=== PATIENT | male | born 1965 | race Caucasian/White ===

== ENCOUNTER 2017-10-23 07:11 | Emergency (ER) | payer BC, OTHER ==
[2017-10-23] MEDS ORDERED: Ondansetron INJ* 2 MG/ML VIAL IV ONE (07:33)
[2017-10-23] MEDS ORDERED: Ketorolac INJ* 30 MG/ML 1 ML VIAL IV ONE (07:33)
[2017-10-23 08:00] LABS: ABS Basophils 0.1 10^3/ul (0-0.2); ABS Eosinophils 0.2 10^3/ul (0-0.6); ABS Lymphocytes 1.5 10^3/ul (1.0-4.8); ABS Monocytes 0.5 10^3/ul (0-0.8); ABS Neutrophils 4.7 10^3/ul (1.5-7.7); ABS Nucleated RBC 0 10^3/ul; Eosinophil % 3.5 % (0-6); Hematocrit 48 % (42-52); Hemoglobin 17.4 g/dl (14.0-18.0); Lymphocyte % 21.6 % (25-47); Mean Corpuscular HGB Conc 37 g/dl (31-36); Mean Corpuscular Hemoglobin 29 pg (27-31); Mean Corpuscular Volume 79 fL (80-94); Mean Platelet Volume 7.1 um3 (7.4-10.4); Nucleated Red Blood Cells % 0.6; Platelet Count 183 10^3/ul (150-450); Red Blood Count 6.03 10^6/ul (4.0-5.4); Red Cell Distribution Width 14 % (10.5-15); White Blood Count 6.9 10^3/ul (3.5-10.8)
[2017-10-23 08:10] LABS: EGFR Non-African American 61.5 (>60)
--- NOTE | 2017-10-23 08:16 | RAD ---
CLINICAL HISTORY: Right flank pain COMPARISON: None TECHNIQUE: Multiple contiguous axial CT scans were obtained of the abdomen and pelvis, without intravenous contrast enhancement. Coronal and sagittal multiplanar reformations are submitted for review. Oral contrast was not administered. FINDINGS: The study is limited by the lack of intravenous contrast. This limits evaluation of the solid organs and vasculature. LUNG BASES: The lung bases are clear. LIVER: The liver is diffusely low in attenuation compared to the spleen. There are no focal hepatic parenchymal masses. BILE DUCTS: There is no intrahepatic or extrahepatic biliary dilatation. GALLBLADDER: The gallbladder is not visualized. Surgical clips are noted in the gallbladder fossa. PANCREAS: The pancreas is normal, without mass or ductal dilatation. SPLEEN: The spleen measures up to 16 cm in long axis. UPPER GI TRACT: Evaluation of the gastrointestinal tract is limited by incomplete gastric distention. The upper GI tract is unremarkable. SMALL BOWEL AND MESENTERY: The small bowel is normal in contour, course, and caliber. There is no obstruction or dilatation. COLON: The colon is normal in contour, course, caliber. There is no pericolonic inflammatory change. There is a tubular, vermiform, hollow viscus that is blind ending, and originates from the cecum, consistent with a normal appendix. There is no periappendiceal inflammatory change. This is best seen on coronal images 49 through 51. ADRENALS: Normal bilaterally. KIDNEYS: There are punctate right renal calyceal stones. There is a 0.3 cm calculus of the right mid ureter without significant hydronephrosis. BLADDER: The bladder is smooth in contour. PELVIC ORGANS: The prostate is diffusely enlarged. The seminal vesicles are symmetric. AORTA: The aorta is normal. IVC: Unremarkable LYMPH NODES: There is no lymphadenopathy by size criteria. ABDOMINAL WALL: There is no evidence for abdominal wall hernia. BONES AND SOFT TISSUES: There are bilateral pars defects at L5 with trace anterolisthesis of L5 on S1. Degenerative changes are noted. OTHER: None IMPRESSION: 1. RIGHT NEPHROLITHIASIS INCLUDING A 0.3 CM RIGHT MID URETERAL STONE WITHOUT SIGNIFICANT HYDRONEPHROSIS. 2. SPLENOMEGALY. 3. 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 4. FATTY INFILTRATION OF THE LIVER. 5. ENLARGED PROSTATE
[2017-10-23] MEDS ORDERED: NS 0.9% 1000 ML* 1,000 ML IV ONE (09:12)
[2017-10-23] MEDS ORDERED: Potassium Chlor TAB* 20 MEQ TAB.ER PO ONE (10:20)
[2017-10-23 10:31] LABS: Urine Appearance Clear; Urine Blood 2+ (Negative); Urine Color Straw; Urine Ketones Negative (Negative); Urine Protein Negative (Negative); Urine Urobilinogen Negative (Negative)
[2017-10-23] MEDS ORDERED: Potassium Chloride LIQUID* 20 MEQ PACKET PO ONE (10:45)
[2017-10-23] MEDS ORDERED: HYDROcodone/ACETAMIN 5-325 MG* 1 TAB PO ONE (10:58)
[2017-10-23 11:09] VITALS: BP 173/97
--- NOTE | 2017-10-24 07:59 | ED ---
Satish Clements Angela, scribed for Andre Sandoval MD on 10/23/17 at 0742 . Abdominal Pain/Male - HPI Summary HPI Summary: This pt is a 52 y/o male presenting to [facility] c/o right flank pain since this morning, 2 hours PRIMARY COUNSELOR. Pt reports that he has nausea and had 1 episode of vomiting. Denies fever, diarrhea, constipation. Pt states he has never had this pain before in the past. Denies hx of kidney stone, although he has had gallstones. Per nurse triage, pt took gas ex this morning with no relief. - History of Current Complaint Chief Complaint: EDFlankPain Stated Complaint: RT FLANK PAIN Hx Obtained From: Patient Onset/Duration: Lasting Hours, Still Present Timing: Lasting Hours Severity Currently: Severe Pain Intensity: 8 Pain Scale Used: 0-10 Numeric Location: Flank - right Radiates: No Aggravating Factor(s): Nothing Alleviating Factor(s): Nothing Associated Signs And Symptoms: Positive: Nausea, Vomiting. Negative: Fever, Constipation, Diarrhea - Allergies/Home Medications Allergies/Adverse Reactions: Allergies Allergy/AdvReac Type Severity Reaction Status Date / Time No Known Allergies Allergy Verified 10/24/17 07:16 Home Medications: Home Medications Omeprazole CAP* [Prilosec CAP* 20 MG] 20 mg PO DAILY 10/23/17 [History Confirmed 10/23/17] PMH/Surg Hx/FS Hx/Imm Hx Endocrine/Hematology History: Denies: Hx Diabetes Cardiovascular History: Denies: Hx Hypertension, Other Cardiovascular Problems/Disorders - Cardiac cath 1999 no stents placed GI History: Reports: Hx Gastrointestinal Bleed - duodenal ulcer Sensory History: Reports: Hx Contacts or Glasses Opthamlomology History: Reports: Hx Contacts or Glasses - Surgical History Surgery Procedure, Year, and Place: gallbladder surg 2010 Infectious Disease History: No Infectious Disease History: Denies: Hx Clostridium Difficile, Hx Hepatitis, Hx Human Immunodeficiency Virus (HIV), Hx Shingles, Hx Tuberculosis, Traveled Outside the [place] in Last 30 Days - Family History Known Family History: Positive: Cardiac Disease - Father: CAD, Hypertension - father and mother Family History: Mother: HLD. No FHx of colorectal CA. - Social History Alcohol Use: None Substance Use Type: Reports: None Smoking Status (MU): Never Smoked Tobacco Review of Systems Negative: Fever ENT: Negative Cardiovascular: Negative Positive: Abdominal Pain, Vomiting, Nausea. Negative: Diarrhea, Other - constipation Skin: Negative Neurological: Negative All Other Systems Reviewed And Are Negative: Yes Physical Exam - Summary Physical Exam Summary: VITAL SIGNS: Reviewed. GENERAL: Patient is a well-developed and nourished male who is lying comfortable in the stretcher. Patient is not in any acute respiratory distress. HEAD AND FACE: Normocephalic and atraumatic. EYES: PERRLA, EOMI x 2, No injected conjunctiva. EARS: Hearing grossly intact. Ear canals and tympanic membranes are WNL. MOUTH: Oropharynx within normal limits. NECK: Supple, trachea is midline, no adenopathy, no JVD. CHEST: Symmetric, no tenderness at palpation LUNGS: Clear to auscultation bilaterally. No wheezing or crackles. CVS: RRR, S1 and S2 present, no murmurs or gallops appreciated. ABDOMEN: Soft. Right flank tenderness. Right costovertebral angle tenderness. No signs of distention. Positive bowel sounds. No rebound no guarding, and no masses palpated. No abdominal bruit or pulsations. EXTREMITIES: FROM in all major joints, no edema, no cyanosis or clubbing. NEURO: Alert and oriented x 3. No acute neurological deficits. Speech is normal. SKIN: Dry and warm Triage Information Reviewed: Yes Vital Signs On Initial Exam: Initial Vitals Temp Pulse Resp BP Pulse Ox 96.1 F 72 16 166/95 100 10/23/17 07:18 10/23/17 07:18 10/23/17 07:18 10/23/17 07:18 10/23/17 07:18 Vital Signs Reviewed: Yes Diagnostics - Vital Signs Vital Signs Temp Pulse Resp BP Pulse Ox 10/23/17 07:18 96.1 F 72 16 166/95 100 - Laboratory Lab Results: Lab Results 10/23/17 10/23/17 10/23/17 Range/Units 07:45 07:45 07:45 WBC 6.9 (3.5-10.8) 10^3/ul RBC 6.03 H (4.0-5.4) 10^6/ul Hgb 17.4 (14.0-18.0) g/dl Hct 48 (42-52) % MCV 79 L (80-94) fL MCH 29 (27-31) pg MCHC 37 H (31-36) g/dl RDW 14 (10.5-15) % Plt Count 183 (150-450) 10^3/ul MPV 7.1 L (7.4-10.4) um3 Neut % (Auto) 67.4 (38-83) % Lymph % (Auto) 21.6 L (25-47) % [place] % (Auto) 6.7 (0-7) % Eos % (Auto) 3.5 (0-6) % Baso % (Auto) 0.8 (0-2) % Absolute Neuts (auto) 4.7 (1.5-7.7) 10^3/ul Absolute Lymphs (auto) 1.5 (1.0-4.8) 10^3/ul Absolute Monos (auto) 0.5 (0-0.8) 10^3/ul Absolute Eos (auto) 0.2 (0-0.6) 10^3/ul Absolute Basos (auto) 0.1 (0-0.2) 10^3/ul Absolute Nucleated RBC 0 10^3/ul Nucleated RBC % 0.6 Sodium 142 (139-145) mmol/L Potassium 3.4 L (3.5-5.0) mmol/L Chloride 107 (101-111) mmol/L Carbon Dioxide 25 (22-32) mmol/L Anion Gap 10 (2-11) mmol/L BUN 14 (6-24) mg/dL Creatinine 1.24 H (0.67-1.17) mg/dL Est GFR ( Amer) 79.0 (>60) Est GFR (Non-Af Amer) 61.5 (>60) BUN/Creatinine Ratio 11.3 (8-20) Glucose 141 H (70-100) mg/dL Lactic Acid 2.4 H* (0.5-2.0) mmol/L Calcium 9.1 (8.6-10.3) mg/dL Total Bilirubin 1.60 H (0.2-1.0) mg/dL AST 20 (13-39) U/L ALT 33 (7-52) U/L Alkaline Phosphatase 56 (34-104) U/L Total Creatine Kinase 86 (10-223) U/L C-Reactive Protein 4.71 (< 5.00) mg/L Total Protein 6.2 L (6.4-8.9) g/dL Albumin 4.3 (3.2-5.2) g/dL Globulin 1.9 L (2-4) g/dL Albumin/Globulin Ratio 2.3 (1-3) Amylase 44 (29-103) U/L Lipase 49 (11.0-82.0) U/L Urine Color Urine Appearance Urine pH (5-9) Ur Specific [place] (1.010-1.030) Urine Protein (Negative) Urine Ketones (Negative) Urine Blood (Negative) Urine Nitrate (Negative) Urine Bilirubin (Negative) Urine Urobilinogen (Negative) Ur Leukocyte Esterase (Negative) Urine WBC (Auto) (Absent) Urine RBC (Auto) (Absent) Urine Bacteria (Absent) Urine Glucose (Negative) 10/23/17 Range/Units 10:08 WBC (3.5-10.8) 10^3/ul RBC (4.0-5.4) 10^6/ul Hgb (14.0-18.0) g/dl Hct (42-52) % MCV (80-94) fL MCH (27-31) pg MCHC (31-36) g/dl RDW (10.5-15) % Plt Count (150-450) 10^3/ul MPV (7.4-10.4) um3 Neut % (Auto) (38-83) % Lymph % (Auto) (25-47) % [place] % (Auto) (0-7) % Eos % (Auto) (0-6) % Baso % (Auto) (0-2) % Absolute Neuts (auto) (1.5-7.7) 10^3/ul Absolute Lymphs (auto) (1.0-4.8) 10^3/ul Absolute Monos (auto) (0-0.8) 10^3/ul Absolute Eos (auto) (0-0.6) 10^3/ul Absolute Basos (auto) (0-0.2) 10^3/ul Absolute Nucleated RBC 10^3/ul Nucleated RBC % Sodium (139-145) mmol/L Potassium (3.5-5.0) mmol/L Chloride (101-111) mmol/L Carbon Dioxide (22-32) mmol/L Anion Gap (2-11) mmol/L BUN (6-24) mg/dL Creatinine (0.67-1.17) mg/dL Est GFR ( Amer) (>60) Est GFR (Non-Af Amer) (>60) BUN/Creatinine Ratio (8-20) Glucose (70-100) mg/dL Lactic Acid (0.5-2.0) mmol/L Calcium (8.6-10.3) mg/dL Total Bilirubin (0.2-1.0) mg/dL AST (13-39) U/L ALT (7-52) U/L Alkaline Phosphatase (34-104) U/L Total Creatine Kinase (10-223) U/L C-Reactive Protein (< 5.00) mg/L Total Protein (6.4-8.9) g/dL Albumin (3.2-5.2) g/dL Globulin (2-4) g/dL Albumin/Globulin Ratio (1-3) Amylase (29-103) U/L Lipase (11.0-82.0) U/L Urine Color Straw Urine Appearance Clear Urine pH 7.0 (5-9) Ur Specific [place] 1.010 (1.010-1.030) Urine Protein Negative (Negative) Urine Ketones Negative (Negative) Urine Blood 2+ A (Negative) Urine Nitrate Negative (Negative) Urine Bilirubin Negative (Negative) Urine Urobilinogen Negative (Negative) Ur Leukocyte Esterase Negative (Negative) Urine WBC (Auto) Absent (Absent) Urine RBC (Auto) 3+(>10/hpf) A (Absent) Urine Bacteria Absent (Absent) Urine Glucose Negative (Negative) Result Diagrams: 10/23/17 07:45 10/23/17 07:45 Lab Statement: Any lab studies that have been ordered have been reviewed, and results considered in the medical decision making process. - CT Abdomen/Pelvis CT CT Interpretation: Positive (See Comments) - IMPRESSION: 1. Right nephrolithiasis including a 0.3 CM right mid ureteral stone without significant hydronephrosis. 2. Splenomegaly. 3. Spondylolysis with mild spondylolisthesis at L5-S1. 4. Fatty infiltration of the liver. 5. Enlarged prostate. Dr. Sandoval has reviewed this radiology report. CT Interpretation Completed By: Radiologist - EKG 07:40 Cardiac Rate: NL EKG Rhythm: Sinus Rhythm - at 80 bpm EKG Interpretation: No ST elevations. Normal axis. Re-Evaluation - Re-Evaluation First Eval Re-Evaluation Time: 10:35 Comment: I reviewed the lab and CT results with the pt. Abdominal Pain Fem Course/Dx - Course Assessment/Plan: This pt is a 52 y/o male presenting to [facility] c/o right flank pain since this morning, 2 hours PRIMARY COUNSELOR. Pt reports that he has nausea and had 1 episode of vomiting. Denies fever, diarrhea, constipation. Pt states he has never had this pain before in the past. Denies hx of kidney stone, although he has had gallstones. Test results without any significant abnormalities except for potassium of 3.4, for which the pt was given potassium chloride, glucose of 141, lactic acid of 2.4, total bilirubin of 1.60. Urinalysis is negative for UTI , it shows 2+ blood. Abdomen/Pelvis CT: 1. Right nephrolithiasis including a 0.3 CM right mid ureteral stone without significant hydronephrosis. 2. Splenomegaly. 3. Spondylolysis with mild spondylolisthesis at L5-S1. 4. Fatty infiltration of the liver. 5. Enlarged prostate. In the ED course the pt was given IV fluids, Zofran, Toradol and [place] for the pain. After these medications the pt is feeling better. Therefore he will be discharged to home with follow up from his PCP. I discussed all the findings and test results with the patient. All questions were answered to patient satisfaction. There were no further complaints or concerns. Pt was given a prescription for [place] and Flomax. He is instructed to return to the ED for any worsening or new symptoms. Pt is hemodynamically stable, alert and oriented x3. - Diagnoses Differential Diagnosis/HQI/PQRI: Renal Colic, Ureteral Stone, Urinary Tract Infection Provider Diagnoses: Kidney stone Discharge - Sign-Out/Discharge Documenting (check all that apply): Discharge - discharge to home - Discharge Plan Condition: Stable Disposition: HOME Prescriptions: Hydrocodone/Acetaminophen [[place] 5-325 Tablet] 1 each PO Q6H PRN #12 tablet MDD 4 PRN Reason: Pain Tamsulosin CAP* [Flomax CAP*] 0.4 mg PO BEDTIME #10 cap Patient Education Materials: Kidney Stones (ED) Referrals: Non Staff,Doctor [Primary Care Provider] - [facility] PHYSICIAN REFERRAL [Outside] Additional Instructions: Please establish a primary care provider and follow up with your primary. RETURN TO THE ED FOR ANY NEW OR WORSENING SYMPTOMS. - Billing Disposition and Condition Condition: STABLE Disposition: HOME The documentation as recorded by the Satish mason Angela accurately reflects the service I personally performed and the decisions made by me, Andre Sandoval MD.
== END 2017-10-23 11:07 | disposition home or self-care (01) ==
LOC: ED 07:11
DX: N20.0 Calculus of kidney (principal)
CPT/HCPCS: 36415; 74176; 80053; 81003; 81015; 82150; 82550; 83605; 83690; 85025; 86140; 93005; 96360; 96374; 96375; 99283; A9270-GY; J1885; J2405

== ENCOUNTER 2017-10-24 07:14 | Day surgery (SDC) | payer BC ==
[2017-10-24] MEDS ORDERED: Ketorolac INJ* 30 MG/ML 1 ML VIAL IV ONE (07:32)
[2017-10-24] MEDS ORDERED: Ondansetron INJ* 2 MG/ML VIAL IV SCH (08:00)
[2017-10-24 08:11] LABS: Hematocrit 47 % (42-52); Hemoglobin 17.1 g/dl (14.0-18.0); Mean Corpuscular HGB Conc 36 g/dl (31-36); Mean Corpuscular Hemoglobin 29 pg (27-31); Mean Corpuscular Volume 80 fL (80-94); Platelet Count 166 10^3/ul (150-450); Red Cell Distribution Width 14 % (10.5-15)
[2017-10-24 08:25] LABS: EGFR Non-African American 40.8 (>60)
[2017-10-24 08:27] LABS: ABS Basophils 0 10^3/ul (0-0.2); ABS Eosinophils 0.1 10^3/ul (0-0.6); ABS Lymphocytes 0.9 10^3/ul (1.0-4.8); ABS Monocytes 0.6 10^3/ul (0-0.8); ABS Neutrophils 10.4 10^3/ul (1.5-7.7)
[2017-10-24] MEDS: NS 0.9% 1000 ML* 2,000 ML IV ONE (08:28)
[2017-10-24 08:30] LABS: Monocytes % 3 % (0-7)
--- NOTE | 2017-10-24 09:33 | RAD ---
INDICATION: Flank abdominal pain. COMPARISON: Correlation is made with a prior CT of the abdomen and pelvis from October 23, 2017. TECHNIQUE: Supine and upright views of the abdomen were obtained. FINDINGS: The small bowel and colon appear nondistended. No free intraperitoneal air is seen. There are several surgical clips in the right upper quadrant consistent with a prior cholecystectomy. There is a surgical clip which projects over the pelvis on the right side. The small ureteral calculus visualized on the prior CT study from one day earlier is not seen on the abdominal series. IMPRESSION: 1. NO EVIDENCE FOR DESTRUCTION. 2. THE RIGHT URETERAL CALCULUS SEEN ON THE PRIOR CT STUDY IS NOT VISUALIZED ON THIS EXAM.
[2017-10-24 10:08] LABS: Urine Appearance Clear; Urine Blood 2+ (Negative); Urine Color Yellow; Urine Ketones Negative (Negative); Urine Protein Negative (Negative); Urine Specific Gravity 1.012 (1.010-1.030); Urine Urobilinogen Negative (Negative)
[2017-10-24] MEDS ORDERED: DiMENhydriNATE IV* 50 MG/ML VIAL IV PUSH PRN (10:27)
[2017-10-24] MEDS ORDERED: Naloxone* 0.4 MG/ML 1 ML VIAL IV PRN (10:27)
[2017-10-24] MEDS ORDERED: oxyCODONE/Acetamin 5/325 MG* TAB PO PRN (10:27)
[2017-10-24] MEDS ORDERED: Sodium Citrate/Citric Acid* 15 ML UDC PO ONE (10:27)
[2017-10-24] MEDS ORDERED: HYDROcodone/ACETAMIN 5-325 MG* 1 TAB PO PRN (10:27)
[2017-10-24] MEDS ORDERED: fentaNYL* 50 MCG/ML 2 ML VIAL (100 MCG VIAL) IV PRN (10:27)
[2017-10-24] MEDS ORDERED: Iohexol 180 (CONTRAST) 10 ML SDV IV ONE (10:30)
[2017-10-24] MEDS ORDERED: Sodium Citrate/Citric Acid* 15 ML UDC ONE (10:44)
[2017-10-24] MEDS ORDERED: fentaNYL* 50 MCG/ML 2 ML VIAL (100 MCG VIAL) ONE (10:52)
[2017-10-24] MEDS ORDERED: cefTRIAXone(*) 1 GM ADVAN/BAG ONE (10:53)
[2017-10-24] MEDS ORDERED: Propofol* 10 MG/ML 20 ML BTL IV PUSH ONE (10:58)
[2017-10-24] MEDS ORDERED: Lidocaine 2% PF * 5 ML VIAL ONE (10:58)
--- NOTE | 2017-10-24 12:02 | RAD ---
INDICATION: Right ureteral calculus, stent placement. COMPARISON: Comparison is made with a prior CT of the abdomen and pelvis from October 23, 2017. TECHNIQUE: 60 seconds of intermittent fluoroscopic guidance were provided and 5 spot films of the abdomen were centered on the right side. FINDINGS: There is partial opacification of the right renal collecting system. Subsequently there is placement of a double-J stent catheter on the right side which demonstrates normal course. IMPRESSION: INTRAOPERATIVE CONTROL FILMS. CPT II Codes: G9500
[2017-10-24 12:50] VITALS: BP 163/94
--- NOTE | 2017-10-24 13:20 | RAD ---
INDICATION: Postop ureteral stent placement right side. COMPARISON: Comparison is made with a prior abdominal series from October 24, 2017. TECHNIQUE: Frontal supine films of the abdomen were obtained. FINDINGS: The small bowel and colon appear nondistended. There is a double-J stent catheter present on the right side which demonstrates normal course. The proximal portion of the catheter is partially uncoiled. IMPRESSION: STATUS POST PLACEMENT OF RIGHT URETERAL STENT CATHETER.
--- NOTE | 2017-10-24 22:32 | OP ---
DATE OF OPERATION: 10/24/17 - [facility] DATE OF : 67. SURGEON: Chris Pires MD. ANESTHESIOLOGIST: Candis Pop MD. ANESTHESIA: General. PRE-OP DIAGNOSES: 1. Right ureteral calculus. 2. Right renal colic. 3. Decreased renal function due to above. POST-OP DIAGNOSES: 1. Right ureteral calculus. 2. Right renal colic. 3. Decreased renal function due to above. OPERATIVE PROCEDURE: 1. Cystoscopy. 2. Right retrograde pyelography. 3. Placement of right ureteral stent (6-Albanian). INDICATION FOR PROCEDURE: Mr. Price is a 52-year-old white male who presented to the emergency room yesterday with symptoms of right renal colic. His serum creatinine was 1.2. Urinalysis showed microscopic hematuria. Noncontrast CT of the abdomen and pelvis showed a 3-mm calculus in the proximal right ureter. The patient was managed conservatively and sent home on pain medication and tamsulosin. Patient had worsening of his pain and he came back to the emergency room this morning. KUB showed no abnormal calcifications. Lab work showed the serum creatinine to be up to 1.8. Because of the above history, the severity and recurrence of the pain, the second visit to the emergency room is in as many days, and with the decrease in the renal function, placement of a ureteral stent was recommended. His past history is negative for renal calculus disease or any voiding symptoms. PATHOLOGY AT CYSTOSCOPY: The penile and bulbar urethrae looked normal. The prostatic urethra measured 2.5 cm in length and there was early prostate enlargement and obstruction. Examination of the bladder showed small crystals floating inside the bladder, that had the appearance of calcium oxalate crystals. After placing the guidewire in the right kidney, a small calcification corresponding to the stone was noted in the proximal ureter in the same position as it was noted on yesterday's CT. Retrograde pyelography after draining the kidney showed no hydronephrosis, but there was a small degree of extravasation from an upper pole calyx indicating a ruptured papilla from his obstruction. Upon introduction of the 6 Fr stent, the ureter felt snug. DESCRIPTION OF PROCEDURE: After successful general anesthesia, patient was placed in the lithotomy position and was prepped and draped for a cystoscopy. Cystoscopy was performed. The bladder was inspected and the above findings were noted. A flexible-tipped guidewire was then introduced into the right orifice and positioned in the area of the renal pelvis. Fluoroscopy showed a small calcification in the proximal ureter adjacent to the guidewire consistent with the stone seen on the CT. A size 5-Albanian open-ended catheter was then fed over the guidewire and positioned in the right renal pelvis. The hydronephrotic drip was drained. 3 cc of contrast were then injected delineating the collecting system and showing a small degree of extravasation. A size 6-Albanian stent was then placed. The stent was snug in the distal ureter. It was however positioned without difficulty with its proximal end coiling in the renal pelvis and the distal end coiling inside the bladder. The bladder was then emptied and the cystoscope was removed. The patient tolerated the procedure well and left the operating room in good condition. The plan is to obtain a KUB before discharge. It is likely that the stone will pass spontaneously once the stent is removed and the resultant passive dilation of the ureter. [id number]/[facility] #: [id number] [facility]
--- NOTE | 2017-10-26 12:49 | ED ---
Jorden Clements Stephanie, scribed for Andre Sandoval MD on 10/24/17 at 0809 . GI/ HPI - HPI Summary HPI Summary: The patient is a 52 y/o M presenting to the ED with c/o N/V that began on . Symptoms include R flank pain. The patient was seen yesterday at [facility] for kidney stones. The patient states he is unable to take ibuprofen. He is currently taking rx meds given to him yesterday without relief. - History of Current Complaint Chief Complaint: EDFlankPain Time Seen by Provider: 10/24/17 07:31 Stated Complaint: FLANK PAIN-RETURN FROM YESTERDAY Hx Obtained From: Patient Onset/Duration: Started Hours Ago, Still Present Timing: Intermittent, Lasting Hours Current Severity: Severe Pain Intensity: 8 Location of Pain: Other - R flank Pain Radiates to: Flank - R Associated Signs and Symptoms: Positive: Nausea, Vomiting, Flank Pain - R Aggravating Factor(s): Nothing Alleviating Factor(s): Nothing - Allergy/Home Medications Allergies/Adverse Reactions: Allergies Allergy/AdvReac Type Severity Reaction Status Date / Time No Known Allergies Allergy Verified 10/24/17 07:16 PMH/Surg Hx/FS Hx/Imm Hx Cardiovascular History: Denies: Other Cardiovascular Problems/Disorders - Cardiac cath 1999 no stents placed GI History: Reports: Hx Gastrointestinal Bleed - duodenal ulcer Sensory History: Reports: Hx Contacts or Glasses Opthamlomology History: Reports: Hx Contacts or Glasses EENT History: Denies: Hx Deafness - Surgical History Surgery Procedure, Year, and Place: gallbladder surg 2010 Infectious Disease History: No Infectious Disease History: Denies: Hx Clostridium Difficile, Hx Hepatitis, Hx Human Immunodeficiency Virus (HIV), Hx Shingles, Hx Tuberculosis, Traveled Outside the [place] in Last 30 Days - Family History Known Family History: Positive: Cardiac Disease - father: CAD, Hypertension - father and mother, Other - Mother: HLD. No FHx of colorectal CA. - Social History Occupation: Employed Full-time Lives: With Family Alcohol Use: None Hx Substance Use: No Substance Use Type: Reports: None Hx Tobacco Use: No Smoking Status (MU): Never Smoked Tobacco Have You Smoked in the Last Year: No Review of Systems Negative: Fever Positive: Vomiting, Nausea Positive: flank pain - R Negative: Slurred Speech All Other Systems Reviewed And Are Negative: Yes Physical Exam - Summary Physical Exam Summary: VITAL SIGNS: Reviewed. GENERAL: Patient is a well-developed and nourished MALE who is lying comfortable in the stretcher. Patient is not in any acute respiratory distress. 3 mm kidney stone in R ureter. He is unable to take pain medications due to N/V. HEAD AND FACE: No signs of trauma. No ecchymosis, hematomas or skull depressions. No sinus tenderness. EYES: PERRLA, EOMI x 2, No injected conjunctiva, no nystagmus. EARS: Hearing grossly intact. Ear canals and tympanic membranes are within normal limits. MOUTH: Oropharynx within normal limits. NECK: Supple, trachea is midline, no adenopathy, no JVD, no carotid bruit, no c- spine tenderness, neck with full ROM. CHEST: Symmetric, no tenderness at palpation LUNGS: Clear to auscultation bilaterally. No wheezing or crackles. CVS: Regular rate and rhythm, S1 and S2 present, no murmurs or gallops appreciated. ABDOMEN: Soft, non-tender. No signs of distention. No rebound no guarding, and no masses palpated. Bowel sounds are normal. EXTREMITIES: FROM in all major joints, no edema, no cyanosis or clubbing. MUSCULOSKELETAL:R costovertebral tenderness NEURO: Alert and oriented x 3. No acute neurological deficits. Speech is normal and follows commands. SKIN: Dry and warm Triage Information Reviewed: Yes Vital Signs On Initial Exam: Initial Vitals Temp Pulse Resp BP Pulse Ox 96.0 F 99 18 199/100 96 10/24/17 07:17 10/24/17 07:17 10/24/17 07:17 10/24/17 07:17 10/24/17 07:17 Vital Signs Reviewed: Yes Diagnostics - Vital Signs Vital Signs Temp Pulse Resp BP Pulse Ox 10/24/17 07:17 96.0 F 99 18 199/100 96 - Laboratory Result Diagrams: 10/24/17 07:57 10/24/17 07:57 Lab Statement: Any lab studies that have been ordered have been reviewed, and results considered in the medical decision making process. - Radiology Abdomen XRay Xray Interpretation: No Acute Changes Radiology Interpretation Completed By: Radiologist - 1. NO EVIDENCE FOR DESTRUCTION. 2. THE RIGHT URETERAL CALCULUS SEEN ON THE PRIOR CT STUDY IS NOT VISUALIZED ON THIS EXAM. ED physician has reviewed this report. Re-Evaluation - Re-Evaluation First Eval Re-Evaluation Time: 09:53 Change: Improved - Pain is 6-7 in severity. GIGU Course/Dx - Course Assessment/Plan: The patient is a 52 y/o M presenting to the ED with c/o N/V that began on 10/21/17. Symptoms include R flank pain. The patient was seen yesterday at [facility] for kidney stones. The patient states he is unable to take ibuprofen. He is currently taking rx meds given to him yesterday without relief. Blood work is without significant abnormalities except increasing creatinine of 1.77. Abdomen Xray reveals no evidence for destruction. The patient was found to have increased BP in the ED. The patient will follow up with PCP for better control of BP. The pt continued to have pain so was consulted. The patient was admitted for possible stent. The pt is hemodynamically stable, alert and oriented x3. - Diagnoses Provider Diagnoses: Renal insufficiency, Ureterolithiasis - Physician Notifications Discussed Care Of Patient With: Chris Pires Time Discussed With Above Provider: 09:52 Instructed by Provider To: Admit As Inpatient Discharge - Sign-Out/Discharge Documenting (check all that apply): Discharge - Discharge Plan Condition: Stable Disposition: ADMITTED TO [facility] The documentation as recorded by the Jorden mason Stephanie accurately reflects the service I personally performed and the decisions made by , Andre Sandoval MD.
== END 2017-10-24 10:24 | disposition home or self-care (01) ==
LOC: ED 07:14 → AA 10:24 → UNDOADMOB 10:24 → OR 10:24 → ED 10:42
PROVIDERS: ATTEND Urology
DX: N20.1 Calculus of ureter (principal); N28.9 Disorder of kidney and ureter, unspecified; R31.29 Other microscopic hematuria; I10 Essential (primary) hypertension; K76.0 Fatty (change of) liver, not elsewhere classified; R11.2 Nausea with vomiting, unspecified; R10.31 Right lower quadrant pain
CPT/HCPCS: 36415; 74018; 74019; 74420; 80053; 81003; 85025; 86140; 87086; 99284; A9270-GY; C1876; J0696; J1885; J2405; J2704; J3010